=== PATIENT | male | born 1985 | race Hispanic/Latino ===

== ENCOUNTER 2017-06-03 05:52 | Emergency (ER) | payer BC ==
[2017-06-03 06:16] VITALS: BP 126/94; PULSE 77; RESP 17; TEMP 98; O2SAT 98
--- NOTE | 2017-06-03 06:42 | ED PDOC ---
HPI: Dental Pain/Injury Time Seen by Provider: 06/03/17 06:13 Chief Complaint (Nursing): Dental Pain Chief Complaint (Provider): Dental Pain History Per: Patient History/Exam Limitations: no limitations Onset/Duration Of Symptoms: Days (Four Days) Current Symptoms Are (Timing): Still Present Severity: Mild Additional Complaint(s): 32 y/o male patient presenting to the ED with mouth pain. Pt states the pain has been present for four days and the usage of Ibuprofen provided no relief of symptoms. PT reports having a lesion along the lower gum of the right side of his mouth and states that the pain increased when trying to chew or eat. Patient denies any past medical history. Past Medical History Reviewed: Historical Data, Nursing Documentation, Vital Signs Vital Signs: Last Vital Signs Temp 98.0 F 06/03/17 06:08 Pulse 77 06/03/17 06:08 Resp 17 06/03/17 06:08 BP 126/94 H 06/03/17 06:08 Pulse Ox 98 06/03/17 06:08 - Medical History PMH: No Chronic Diseases - Surgical History Surgical History: No Surg Hx - Family History Family History: States: Unknown Family Hx - Social History Current smoker - smoking cessation education provided: No Alcohol: None Drugs: Denies - Home Medications Home Medications: Ambulatory Orders Medication Instructions Recorded Lidocaine 2% Viscous 15 ml MM TID PRN #2 bottle 06/03/17 - Allergies Allergies/Adverse Reactions: Allergies Allergy/AdvReac Type Severity Reaction Status Date / Time Sulfa (Sulfonamide Allergy Mild RASH Verified 06/03/17 06:11 Antibiotics) Review of Systems ROS Statement: Except As Marked, All Systems Reviewed And Found Negative ENT: Positive for: Mouth Pain ((+)Right Side mouth pain, lesion). Negative for : Mouth Swelling Physical Exam - Reviewed Nursing Documentation Reviewed: Yes Vital Signs Reviewed: Yes - Physical Exam Appears: Positive for: Non-toxic, No Acute Distress Head Exam: Positive for: ATRAUMATIC, NORMAL INSPECTION, NORMOCEPHALIC Skin: Positive for: Normal Color, Warm, Dry ENT: Positive for: Other ((+)Ulceration 0.5cm on the right side of mandible, tenderness (-)bleeding, (-)vasicular lesion ) Neurologic/Psych: Positive for: Alert, Oriented, Motor/Sensory Deficits - ECG O2 Sat by Pulse Oximetry: 98 (RA) Pulse Ox Interpretation: Normal Medical Decision Making Medical Decision Making: Time: 634 Initial impression: Oral Ulcer Initial plan/Discharge: Evaluation. Patient feels better. Discussed results and plan with patient who expresses understanding. Counseling was provided regarding the diagnosis and prognosis. All questions answered and there is agreement with the plan to discharge home with instructions. Patient stable for discharge. Return if symptoms persist or worsen. Patient prescribed Lidocaine and advised to follow up with PMD. Scribe Attestation: Documented by Beth Lin, acting as a scribe for Sundeep Mendes MD. Scribe Attestation: All medical record entries made by the Scribe were at my direction and personally dictated by me. I have reviewed the chart and agree that the record accurately reflects my personal performance of the history, physical exam, medical decision making, and the department course for this patient. I have also personally directed, reviewed, and agree with the discharge instructions and disposition. Disposition - Clinical Impression Clinical Impression: Oral ulcer - Patient ED Disposition Is Patient to be Admitted: No - Disposition Disposition: Routine/Home Disposition Time: 06:35 Condition: STABLE Prescriptions: Lidocaine 2% Viscous 15 ml MM TID PRN #2 bottle PRN Reason: oral pain Instructions: Canker Sores (ED)
== END 2017-06-03 06:40 | disposition home or self-care (01) ==
LOC: H.ER 05:52
DX: K12.0 Recurrent oral aphthae (principal)